=== PATIENT | female | born 2000 | race Two or more races ===

== ENCOUNTER 2024-04-15 11:11 | Observation (INO) | payer MEDICAID, OTHER ==
[~2024-04-15] VITALS: Ht 172.7 cm; Wt 113.4 kg
--- NOTE | 2024-04-15 15:35 | DVHDS2 ---
Obstetrics Discharge Summary Obstetrics Discharge Summary Date of Admission: Apr 15, 2024 Date of Discharge: Apr 15, 2024 Reason For Admission: Observational/Evaluation ( Status), Others (Patient had acute onset abdominal pain which resolved no bleeding positive movement) Procedures: NST Discharge Diagnosis: Others (Reassurance) Discharge Information: Activity, Diet (Routine), Medications (None), Instructions (Kick counts labor precautions), Discharge to (Home), Discarge date (April 15, 2024) KIAN JOSEPH DO Apr 15, 2024 15:35
== END 2024-04-15 13:13 | disposition home or self-care (01) ==
LOC: LDRP 11:11
PROVIDERS: ADMIT Obstetrics & Gynecology; ATTEND Obstetrics & Gynecology
DX: O26.892 Other specified pregnancy related conditions, second trimester (principal); R10.9 Unspecified abdominal pain; Z3A.25 25 weeks gestation of pregnancy; Z79.899 Other long term (current) drug therapy
CPT/HCPCS: 59025; 81002; 94760; G0378

== ENCOUNTER 2024-05-17 08:08 | Observation (INO) | payer MEDICAID ==
[~2024-05-17] VITALS: Ht 172.7 cm; Wt 119.3 kg
[2024-05-17] MEDS ORDERED: ASPI-543 PO (09:55)
[2024-05-17] MEDS ORDERED: PREN-96 PO (09:56)
--- NOTE | 2024-05-17 19:22 | DVHDS2 ---
Physician Discharge Progress N Final Diagnosis: testing for CHTN Operations or Procedures: Operations or Procedures 23yo IUP@29.5wks, +FM, denies UCs/VB/LOF/GUDINO/vision changes/RUQ pain. VSS, normotensive except one DBP of 91 UA wnl NST reactive (verified by 2 RNs) FKC/PTL/Labor/PreE precautions reviewed Rx sent for baby aspirin. Pt instructed to take until delivery. Condition on Discharge: Stable Disposition: Home Discharge Instructions: Diet: Regular Activity: No Restrictions, As Tolerated Medications: see med list Follow Up Care: Specialist: f/u in 1wk and do preeclampsia labs then Discharge Statement: "Patient was advised to return to the ER or call 911 if any headaches, dizziness, shortness of breath, chest pain, abdominal pain, bleeding, fevers, or worsening of medical condition. Patient was counseled about treatment plan, medications, possible side effects, patientverbalized understanding. All questions were answered to the best of my ability. This discharge took greater then 30 minutes in planning, reviewing documentation, counseling the patient, and discussing with other team members." MARIBEL OLIVERA May 17, 2024 19:22
== END 2024-05-17 10:13 | disposition home or self-care (01) ==
LOC: LDRP 08:08 → UNDOADMOB 08:08 → LDRP 08:18 → UNDODISOB 10:13
PROVIDERS: ADMIT Obstetrics & Gynecology; ATTEND Obstetrics & Gynecology
DX: O13.3 Gestational [pregnancy-induced] hypertension without significant proteinuria, third trimester (principal); Z3A.29 29 weeks gestation of pregnancy; Z79.899 Other long term (current) drug therapy
CPT/HCPCS: 59025; 81002; 94760; G0378